=== PATIENT | female | born 1965 | race Hispanic/Latino ===

== ENCOUNTER 2020-06-07 15:41 | Observation (INO) | payer SELFPAY ==
[2020-06-07 16:05] LABS: #Monocytes 0.4 10x3/uL (0.0-1.1); #Neutrophils 9.5 10x3/uL (1.5-8.4); %Basophils 0.3 % (0.0-2.0); %Eosinophils 0.3 % (0.0-6.0); %Lymphocytes 12.8 % (18.0-47.0); %Monocytes 3.1 % (0.0-10.0); %Neutrophils 82.8 % (40.0-75.0); Hemoglobin 14.3 g/dL (12.0-15.5); Mean Corpuscular HGB CONC 33.6 g/dL (32.0-36.0); Mean Corpuscular Hemoglobin 30.7 pg (27.0-33.0); Mean Corpuscular Volume 91.4 fl (81.6-98.3); Mean Platelet Volume 10.1 fl (7.4-10.4); Platelet Count 249 10x3/uL (150-450); RBC Distribution Width 12.1 % (11.5-14.5); Red Blood Cell (RBC) Count 4.66 10x6/uL (3.90-5.03); White Blood Cell (WBC) Count 11.4 10x3/uL (3.5-10.5)
[2020-06-07 16:17] LABS: ALT (SGPT) 24 U/L (8-55); AST (SGOT) 14 U/L (5-34); Albumin 4.4 g/dL (3.5-5.0); Alkaline Phosphatase 87 U/L (40-110); Anion Gap 19 mmol/L (10-20); BUN (Urea Nitrogen) 13 mg/dL (9.8-20.1); Bilirubin, Total 0.5 mg/dL (0.2-1.2); Calc. Creatinine Clearance 0 mL/min (70-130); Calcium 9.1 mg/dL (7.8-10.44); Carbon Dioxide 20 mmol/L (22-29); Chloride 104 mmol/L (98-107); Globulin 2.8 g/dL (2.4-3.5); Glucose 225 mg/dL (70-105); Potassium 3.6 mmol/L (3.5-5.1); Protein, Total 7.2 g/dL (6.0-8.3); Sodium 139 mmol/L (136-145)
[2020-06-07] MEDS ORDERED: Acetaminophen 500 MG TAB ONE (17:02)
[2020-06-07] MEDS ORDERED: HYDROcodone/Acetaminophen 5/325 mg Tablet PO PRN (17:25)
[2020-06-07] MEDS ORDERED: hydrALAZINE 20 MG/ML VIAL SLOW IVP PRN (17:25)
[2020-06-07] MEDS ORDERED: Loratadine 10 MG TAB PO PRN (17:25)
[2020-06-07] MEDS ORDERED: Senokot S 8.6-50 MG TAB PO PRN (17:25)
[2020-06-07] MEDS ORDERED: Guaifenesin DM 100-10/5 ML UDCUP PO PRN (17:25)
[2020-06-07] MEDS ORDERED: HumaLOG 300 UNITS/3 ML VIAL SC PRN ×2 (17:25)
[2020-06-07] MEDS ORDERED: Cepastat Lozenges 1 LOZ PO PRN (17:25)
[2020-06-07] MEDS ORDERED: Zolpidem Tartrate 5 MG TAB PO PRN (17:25)
[2020-06-07] MEDS ORDERED: Bisacodyl 10 MG SUPP PR PRN (17:25)
[2020-06-07] MEDS ORDERED: Loperamide HCl 2 MG CAP PO PRN (17:25)
[2020-06-07] MEDS ORDERED: Calcium Carbonate 500 MG ChewTAB PO PRN (17:25)
[2020-06-07] MEDS ORDERED: Ondansetron ODT 4 MG TAB PO PRN (17:25)
[2020-06-07] MEDS ORDERED: Nitroglycerin 0.4 MG TAB (25 Tab Bottle) SL PRN (17:25)
[2020-06-07] MEDS ORDERED: Dextrose 5% in Water 1,000 ML IV PRN (17:25)
[2020-06-07] MEDS ORDERED: Sodium Chloride 0.65% Nasal 44 ML BOT EA NARE PRN (17:25)
[2020-06-07] MEDS ORDERED: Acetaminophen 325 MG TAB PO PRN (17:25)
[2020-06-07] MEDS ORDERED: Dextrose 50% Abboject 50 ML SYRINGE SLOW IVP PRN (17:25)
[2020-06-07] MEDS ORDERED: Ondansetron PF 4 MG/2 ML Vial IVP PRN (17:25)
[2020-06-07] MEDS ORDERED: Eucerin (Mineral Oil/Petrolatum,White) 30 gm Jar TOP PRN (17:25)
[2020-06-07 18:35] VITALS: BMI 31.3
[2020-06-07 19:46] LABS: Troponin I Less than 0.010 ng/mL (< 0.028)
[2020-06-07] MEDS: Famotidine 20 MG TAB PO SCH (20:12)
[2020-06-07 22:49] LABS: Troponin I Less than 0.010 ng/mL (< 0.028)
[2020-06-07 22:54] LABS: Bilirubin Neg (Negative); Blood, Urine 10 (Negative); Clarity Clear (Clear); Glucose, Urine (Dipstick) 100 mg/dL (Negative); Ketone, Urine 5 mg/dL (Negative); Leukocyte Negative (Negative); Nitrite Negative (Negative); Protein, Urine (Dipstick) 15 mg/dl (Neg-Trace)
[2020-06-07 23:12] LABS: Bacteria/HPF 2+ HPF (None Seen); Mucous/LPF 1+ LPF (<2+); WBC/HPF 0-3 HPF (0-3)
[2020-06-08 05:48] LABS: Anion Gap 14 mmol/L (10-20); BUN (Urea Nitrogen) 12 mg/dL (9.8-20.1); Calc. Creatinine Clearance 122 mL/min (70-130); Calcium 8.8 mg/dL (7.8-10.44); Carbon Dioxide 22 mmol/L (22-29); Chloride 106 mmol/L (98-107); Glucose 152 mg/dL (70-105); Potassium 4.1 mmol/L (3.5-5.1); Sodium 138 mmol/L (136-145)
[2020-06-08 05:53] LABS: #Eosinphils 0.2 10x3/uL (0.0-0.5); #Monocytes 0.5 10x3/uL (0.0-1.1); #Neutrophils 3.9 10x3/uL (1.5-8.4); %Basophils 0.6 % (0.0-2.0); %Eosinophils 2.8 % (0.0-6.0); %Lymphocytes 34.3 % (18.0-47.0); %Monocytes 7.5 % (0.0-10.0); %Neutrophils 54.2 % (40.0-75.0); Hemoglobin 13.1 g/dL (12.0-15.5); Mean Corpuscular HGB CONC 33.2 g/dL (32.0-36.0); Mean Corpuscular Hemoglobin 30.8 pg (27.0-33.0); Mean Corpuscular Volume 92.5 fl (81.6-98.3); Platelet Count 229 10x3/uL (150-450); RBC Distribution Width 12.2 % (11.5-14.5); Red Blood Cell (RBC) Count 4.26 10x6/uL (3.90-5.03); White Blood Cell (WBC) Count 7.2 10x3/uL (3.5-10.5)
[2020-06-08] MEDS: Aspirin 325 MG TAB PO SCH (08:40)
[2020-06-08] MEDS: Famotidine 20 MG TAB PO SCH ×2 (08:40→20:38)
[2020-06-08] MEDS: Lisinopril 10 MG TAB PO SCH (08:40)
[2020-06-08] MEDS ORDERED: Lisinopril 10 MG TAB PO SCH (09:00)
[2020-06-08 12:27] LABS: Cardiac Risk 5.2 (Less than 4.5)
[2020-06-08 16:18] LABS: SARS-CoV-2 PCR by NAA Not Detected (NotDetected)
[2020-06-08 17:17] LABS: Hemoglobin A1c 7.7 % (4.0-6.0)
[2020-06-09 08:01] VITALS: BP 121/81; TEMP 98.2
[2020-06-09] MEDS: Famotidine 20 MG TAB PO SCH (09:25)
[2020-06-09] MEDS: Aspirin 325 MG TAB PO SCH (09:26)
[2020-06-09] MEDS: Lisinopril 10 MG TAB PO SCH (09:26)
== END 2020-06-09 12:05 | disposition home or self-care (01) ==
LOC: CSHERS 15:41 → CSHTELE 18:13
PROVIDERS: ADMIT Internal Medicine; ATTEND Internal Medicine
DX: R07.9 Chest pain, unspecified (principal); R51.9 Headache, unspecified; I10 Essential (primary) hypertension; E11.65 Type 2 diabetes mellitus with hyperglycemia; E78.5 Hyperlipidemia, unspecified; Z79.899 Other long term (current) drug therapy; K21.9 Gastro-esophageal reflux disease without esophagitis; Z98.51 Tubal ligation status; Z20.822 Contact with and (suspected) exposure to COVID-19
CPT/HCPCS: 36415; 36416; 70450; 71045; 80048; 80053; 80061; 81001; 83036; 84484; 85025; 87086; 87635; 93005; 93306; 94760; G0378; J1815; U0003; U0005